=== PATIENT | male | born 1945 | race Caucasian/White ===

== ENCOUNTER → 2016-12-07 | Outpatient (CLI) | payer MEDICARE ==
[~2016-12-07] MED LIST: AMLODIPINE BESY10 M1 PO; AMLODIPINE10 MG PO; ASPIRIN 325MG325 MG PO; CALCIUM 600-D 61 TAB PO; CIPRO 500MG TA500 MG PO; CITALOPRAM HYDR40 MG PO; CITALOPRAM20 MG PO; COUMADIN 2.5MG2.5 MG PO; COUMADIN 5MG TAB5 MG PO; DICLOFENAC 50MG50 MG PO; DICLOFENAC SOD75 MG PO; DICLOFENAC SODI75 M2 PO; FLEXERIL10 MG PO; KEFLEX500 M1 PO; LOSARTAN POTAS100 MG PO; MULTI VITAMINS1 TA1 PO; NEFAZODONE HCL50 MG PO; NEFAZODONE100 MG PO; NICODERM C21 MG/24 H TD; NORCO 325 MG-51 TAB PO; OMEPRAZOLE20 MG PO; PREDNISONE 20MG20 MG PO; TESSALON PERLE100 MG PO; ZITHROMAX Z-PA250 M1 PO
[2016-12-07 14:03] LABS: LYMPH # 1.6 K/mm3 (0.7-4.5); LYMPH % 23.3 % (10-50)
[2016-12-07 14:27] LABS: BUN 13 mg/dL (7-18); GFR (ESTIMATED) 60 ML/MIN (>60)
== END ==
LOC: LAB 13:15
PROVIDERS: Emergency Medicine
DX: R53.83 Other fatigue (principal); Z79.899 Other long term (current) drug therapy

== ENCOUNTER → 2017-04-27 | Outpatient (CLI) | payer MEDICARE ==
[~2017-04-27] MED LIST changes: +GOOD SENSE400 MG/5 M PO; +LIDOCAINE 2% MM; +PEPCID COMPLET1 EACH PO; +[UNRECOGNIZED DRUG - OTHER] MM
[2017-04-27 15:20] LABS: HEMOGLOBIN 13.9 g/dL (14.1-18.0); LYMPH % 28.6 % (10-50)
[2017-04-27 17:09] LABS: BUN 13 mg/dL (7-18)
[2017-04-27 17:22] LABS: GFR (ESTIMATED) 55 ML/MIN (>60)
== END ==
LOC: LAB 14:59
PROVIDERS: Surgery
DX: D23.5 Other benign neoplasm of skin of trunk (principal); Z01.818 Encounter for other preprocedural examination

== ENCOUNTER 2017-04-30 09:03 | Day surgery (SDC) | payer MEDICARE ==
[~2017-04-30] VITALS: Ht 175.3 cm; Wt 104.3 kg
--- NOTE | 2017-04-30 12:01 | Operative Note ---
Surgeon/Diagnoses Surgeon/Appliance Fixer(s) Date of procedure: 04/30/17 Surgeon: MD Imani Meza Appliance Fixer(s): Anni Hampton Diagnoses Pre-op diagnosis: RIGHT groin skin lesions Post-op diagnosis Same Procedure Procedure Procedure: Excision RIGHT groin skin lesions (2.5 cm fungating slightly pigmented lesion and small satellite tags) Indications: MAICOL BAIG is a 71 year-old Male with a history of irritating skin lesions along the RIGHT groin with a dominant 2.5 cm fungating lesion consistent with likely condylomatous change versus seborrheic keratosis. Small satellite tacks were also noted. After discussion with the patient concerning the risks and benefits the decision was made to proceed with excision. Findings: Although several lesions excised/cauterized Procedure Description: After informed consent was obtained, the patient was taken to the operating room and placed in the supine position. General anesthesia with laryngeal mask airway was achieved. The groin was prepped and draped. After infiltration with local anesthetic electrocautery was utilized to excise the tall tiny satellite tags. Electrocautery was also utilized to excise/cauterize the dominant lesion and it was sent for pathologic evaluation. Dressings were applied and the patient was transferred to recovery in stable condition. EBL (ml): 1 Anesthesia: General Complications: No immediate Specimens: 2.5 cm RIGHT groin lesion Disposition Disposition: Stable to recovery from where he will be discharged home. He will follow-up in one week. at 1201
--- NOTE | 2017-04-30 12:10 | Anesthesia Record ---
Anesthesia Record Part I Total IV fluids: 500 EBL (ml): 0 Urine Output: 0 B/P: 159/59 % SaO2: 96 Pulse: 75 Resps: 18 Temp: 97.7 Patient is: Mask O2, Stable Stable to PACU at: 1207 at 1210
--- NOTE | 2017-04-30 12:11 | Anesthesia Record ---
Anesthesia Record Part II Discharge time: 1237 Destination: Same day surgery PACU nurse assessment review? Yes Patient is: Stable Anesthesia complications? No at 1211
[2017-04-30 13:55] VITALS: BP 120/74
== END 2017-04-30 13:08 | disposition home or self-care (01) ==
LOC: SDC 09:03
PROVIDERS: Surgery
PROC: 0HBHXZZ Excision of Right Upper Leg Skin, External Approach (ICD-10-PCS; principal; 2017-04-30 13:15)
DX: L82.1 Other seborrheic keratosis (principal); J44.9 Chronic obstructive pulmonary disease, unspecified; Z85.9 Personal history of malignant neoplasm, unspecified; Z82.49 Family history of ischemic heart disease and other diseases of the circulatory system; Z80.9 Family history of malignant neoplasm, unspecified; F17.200 Nicotine dependence, unspecified, uncomplicated; Z88.0 Allergy status to penicillin; Z79.899 Other long term (current) drug therapy; F41.9 Anxiety disorder, unspecified; R52 Pain, unspecified
CPT/HCPCS: J0131